=== PATIENT | female | born 1955 | race Caucasian/White ===

== ENCOUNTER 2019-10-15 07:02 | Emergency (ER) | payer OTHER ==
[~2019-10-15] VITALS: Ht 165.1 cm; Wt 59.0 kg
[~2019-10-15 07:02] MED LIST: AMOXICILLIN500 MG PO; B12,B-12,B 12500 MC1 PO; BIAXIN500 MG PO; CLARITIN10 MG PO; DAYPRO600 M1 PO; DIFLUCAN150 MG PO; DOXYCYCLINE MO100 MG PO; FLONASE0.05 MG/AC NS; IMITREX25 MG PO; MAXALT10 MG PO; MOTRIN800 MG PO; NKHM; PHENERGAN W/DM120 ML PO; PROVENTIL0.09 MG/A1 IH; PROVENTIL0.09 MG/AC IH; ROBAXIN750 MG PO; TORADOL10 MG PO
[2019-10-15] MEDS ORDERED: TYLENOL325 M1 PO (08:05)
[2019-10-15] MEDS ORDERED: NAPROXEN250 MG PO (08:05)
== END 2019-10-15 08:35 | disposition home or self-care (01) ==
LOC: ED 07:02
DX: S29.002A Unspecified injury of muscle and tendon of back wall of thorax, initial encounter (principal); G43.909 Migraine, unspecified, not intractable, without status migrainosus; Z88.6 Allergy status to analgesic agent; Z79.899 Other long term (current) drug therapy; Z90.710 Acquired absence of both cervix and uterus; Z98.890 Other specified postprocedural states; W18.2XXA Fall in (into) shower or empty bathtub, initial encounter; Y93.89 Activity, other specified; Y92.89 Other specified places as the place of occurrence of the external cause; Y99.8 Other external cause status

== ENCOUNTER 2020-01-17 15:53 | Emergency (ER) | payer OTHER ==
[~2020-01-17 15:53] MED LIST changes: +NAPROXEN250 MG PO; +TYLENOL325 M1 PO
== END 2020-01-17 17:40 | disposition home or self-care (01) ==
LOC: ED 15:53
DX: T16.2XXA Foreign body in left ear, initial encounter (principal); Z88.6 Allergy status to analgesic agent; Z87.891 Personal history of nicotine dependence; X58.XXXA Exposure to other specified factors, initial encounter; Y93.89 Activity, other specified; Y92.89 Other specified places as the place of occurrence of the external cause; Y99.8 Other external cause status

== ENCOUNTER → 2023-11-30 | Outpatient (CLI) | payer MEDICARE ==
[2023-11-30 09:05] LABS: HEMATOCRIT 41.4 % (37.0-47.0); MEAN CELL VOLUME 91.8 fl (81.0-99.0); MEAN CORPUSCULAR HGB 29.7 pg (27.0-31.0); MEAN CORPUSCULAR HGB CONC 32.4 g/dl (33.0-37.0); MEAN PLATELET VOLUME 8.7 fl (9.6-12.3); RED BLOOD COUNT 4.51 10*6/uL (4.10-5.10); RED CELL DISTRI WIDTH 14.6 % (0-14.5); WHITE BLOOD COUNT 5.7 10*3/uL (4.8-10.8)
[2023-11-30 10:08] LABS: VITAMIN D, 25-HYDROXY 16.3 ng/mL (30-100)
[2023-11-30 10:36] LABS: ALKALINE PHOSPHATASE 94 U/L (46-116); BUN 21 mg/dl (9-23); CHLORIDE 106 mmol/L (98-107); CHOLESTEROL 279 mg/dL (<200); LDL CHOLESTEROL 181 mg/dL (9-159); POTASSIUM 4.3 mmol/L (3.4-5.1); SGPT/ALT 11 U/L (5-49); TOTAL PROTEIN 6.8 gm/dL (6.0-8.0); TRIGLYCERIDES 83 mg/dl (<150)
[2023-12-01 05:07] LABS: HBSAG Negative (Negative); HEP B CORE AB, IGM Negative (Negative); HEPATITIS C ANTIBODY Non Reactive (Non Reactive)
== END ==
LOC: LAB 08:25 → US 08:30
PROVIDERS: ATTEND Family Medicine
DX: N13.30 Unspecified hydronephrosis (principal); K76.89 Other specified diseases of liver; E55.9 Vitamin D deficiency, unspecified; R53.83 Other fatigue; E78.00 Pure hypercholesterolemia, unspecified; N39.0 Urinary tract infection, site not specified